=== PATIENT | male | born 1980 | race Caucasian/White ===

== ENCOUNTER 2022-07-11 17:29 | Emergency (ER) | payer OTHER ==
[2022-07-11] MEDS ORDERED: SODIUM CHLORIDE 1,000 ML IV STA (17:46)
[2022-07-11] MEDS ORDERED: MIDAZOLAM HCL 2 MG/2 ML SINGLE DOSE VIAL IVPUSH ONE (17:47)
[2022-07-11] MEDS ORDERED: morphine SULFATE 4 MG/ML VIAL IVPUSH ONE ×2 (17:47→17:49)
[2022-07-11] MEDS ORDERED: KETAMINE HCL 500 MG/10 ML VIAL ONE (17:48)
[2022-07-11] MEDS ORDERED: KETAMINE HCL 500 MG/10 ML VIAL IVPB ONE (17:49)
[2022-07-11] MEDS ORDERED: morphine SULFATE 4 MG/ML VIAL ONE (17:52)
[2022-07-11] MEDS ORDERED: ONDANSETRON 4 MG/2 ML VIAL IVPUSH ONE (18:24)
[2022-07-11 18:26] VITALS: BMI 21.3
[2022-07-11] MEDS ORDERED: DIPHTH,PERTUSS(ACELL),TET 0.5 ML DISP.SYRIN IM ONE ×2 (18:29→18:42)
[2022-07-11] MEDS ORDERED: CEFAZOLIN 1 GM in DEXTROSE 5%-WATER - 50 ML IVPB ONE (18:29)
[2022-07-11] MEDS ORDERED: ONDANSETRON 4 MG/2 ML VIAL ONE (18:41)
[2022-07-11] MEDS ORDERED: ceFAZolin SODIUM 1 GM VIAL ONE (18:42)
[2022-07-11 18:59] LABS: BASO % 0.6 % (0-2.0); EOS % 0.7 % (0-4.5); HEMATOCRIT 45.4 % (35.4-49); HEMOGLOBIN 14.8 GM/dL (11.7-16.9); LYMPH % 25.4 % (8-40); MCH 27.1 pg (25.7-33.7); MCHC 32.6 g/dl (32.0-35.9); MEAN CELL VOLUME 83.1 fl (80-96); MEAN PLT VOLUME 9.5 fl (7.5-11.1); MONO % 5.6 % (3.8-10.2); NEUT % 67.7 % (42.8-82.8); PLATELET COUNT 388 10^3/uL (134-434); RBC 5.46 M/mm3 (4.00-5.60); RDW 13.8 % (11.9-15.9); WHITE BLOOD COUNT 18.7 K/mm3 (4.0-10.0)
[2022-07-11 19:14] LABS: INR 1.07 (0.83-1.09); PROTHROMBIN TIME (PATIENT) 12.3 SEC (9.7-13.0)
[2022-07-11 19:16] LABS: ACTIVATED PTT 29.1 SECONDS (25.2-36.5)
[2022-07-11 19:19] LABS: ALBUMIN 3.6 g/dl (3.4-5.0); BLOOD UREA NITROGEN 17.3 mg/dL (7-18); CALCIUM 8.8 mg/dL (8.5-10.1)
[2022-07-11 19:22] LABS: CREATININE 1.2 mg/dL (0.55-1.3)
[2022-07-11 19:24] LABS: BILIRUBIN,TOTAL 0.6 mg/dL (0.2-1); TOT PROT 7.2 g/dl (6.4-8.2)
[2022-07-12] MEDS ORDERED: ONDANSETRON 4 MG/2 ML VIAL IVPUSH ONE (01:25)
[2022-07-12] MEDS ORDERED: ONDANSETRON 4 MG/2 ML VIAL ONE (01:26)
[2022-07-12 01:50] VITALS: BP 143/72; PULSE 52; RESP 16; TEMP 97.9
[2022-07-12] MEDS ORDERED: ACETAMINOPHEN 325 MG TABLET (FP) PO ONE (02:44)
== END 2022-07-12 06:47 | disposition home or self-care (01) ==
LOC: JER 17:29
PROC: 0SSGXZZ Reposition Left Ankle Joint, External Approach (ICD-10-PCS; principal; 2022-07-11)
PROC: 3E03329 Introduction of Other Anti-infective into Peripheral Vein, Percutaneous Approach (ICD-10-PCS; 2022-07-11)
PROC: 3E0234Z Introduction of Serum, Toxoid and Vaccine into Muscle, Percutaneous Approach (ICD-10-PCS; 2022-07-11)
PROC: 3E033GC Introduction of Other Therapeutic Substance into Peripheral Vein, Percutaneous Approach (ICD-10-PCS; 2022-07-11)
PROC: 3E033NZ Introduction of Analgesics, Hypnotics, Sedatives into Peripheral Vein, Percutaneous Approach (ICD-10-PCS; 2022-07-11)
PROC: 3E033NZ Introduction of Analgesics, Hypnotics, Sedatives into Peripheral Vein, Percutaneous Approach (ICD-10-PCS; 2022-07-11)
PROC: 3E033NZ Introduction of Analgesics, Hypnotics, Sedatives into Peripheral Vein, Percutaneous Approach (ICD-10-PCS; 2022-07-11)
PROC: 3E033GC Introduction of Other Therapeutic Substance into Peripheral Vein, Percutaneous Approach (ICD-10-PCS; 2022-07-11)
PROC: 3E0337Z Introduction of Electrolytic and Water Balance Substance into Peripheral Vein, Percutaneous Approach (ICD-10-PCS; 2022-07-11)
DX: S93.01XA Subluxation of right ankle joint, initial encounter (principal); Y30.XXXA Falling, jumping or pushed from a high place, undetermined intent, initial encounter
CPT/HCPCS: 0241U-QW; 27840; 36415; 73564-TC-RT-FY; 73590-TC-RT-FY; 73610-TC-RT-FY; 73630-TC-RT-FY; 73700-TC-RT; 80053; 85025; 85610; 85730; 86850; 86900; 86901; 90471; 90715; 93005; 93010; 96361; 96374; 96375; 96376; 99285-25